=== PATIENT | male | born 1980 | race Caucasian/White ===

== ENCOUNTER 2021-01-05 16:09 | Inpatient (IN) | payer OTHER ==
[2021-01-05 19:49] VITALS: BMI 19.8
[2021-01-05] MEDS ORDERED: ACETAMINOPHEN 325 MG TABLET (FP) PO PRN ×2 (21:00)
[2021-01-05] MEDS ORDERED: MENTHOL/PHENOL 1 EACH UD MM PRN (21:00)
[2021-01-05] MEDS ORDERED: MAGNESIUM HYDROX 2400MG/30ML ORAL SUSPENSION 30 ML CUP PO PRN (21:00)
[2021-01-05] MEDS ORDERED: MAG HYDROX/AL HYDROX/SIMETH 30 ML UNIT-DOSE CUP PO PRN (21:00)
[2021-01-05] MEDS ORDERED: IBUPROFEN 400 MG TABLET (FP) PO PRN (21:00)
[2021-01-05] MEDS ORDERED: chlordiazePOXIDE HCL 25 MG CAPSULE PO PRN (21:00)
[2021-01-05] MEDS ORDERED: NICOTINE POLACRILEX 2 MG GUM BUC PRN (21:00)
[2021-01-05] MEDS ORDERED: METHOCARBAMOL 500 MG TABLET PO PRN (21:00)
[2021-01-05] MEDS ORDERED: BISMUTH SUBSALICYLATE 524 MG/30 ML UD PO PRN (21:00)
[2021-01-05] MEDS ORDERED: ONDANSETRON *ODT* 4 MG TABLET SL PRN (21:00)
[2021-01-05] MEDS ORDERED: MAGNESIUM CITRATE 300 ML BOTTLE PO PRN (21:00)
[2021-01-05] MEDS ORDERED: hydrOXYzine PAMOATE 25 MG CAPSULE (FP) PO SCH (22:00)
[2021-01-05] MEDS ORDERED: LORazepam 1 MG TABLET PO PRN (22:35)
[2021-01-05] MEDS ORDERED: hydrOXYzine PAMOATE 25 MG CAPSULE (FP) PO PRN (22:35)
[2021-01-05] MEDS: levETIRAcetam 500 MG TABLET (FP) PO SCH (22:55)
[2021-01-05] MEDS: MELATONIN 5 MG TABLETS PO SCH (22:55)
[2021-01-05] MEDS: LORazepam 2 MG TABLET PO SCH (22:55)
[2021-01-05] MEDS: THIAMINE HCL 100 MG TABLET (FP) PO SCH (22:57)
[2021-01-05] MEDS ORDERED: chlordiazePOXIDE HCL 25 MG CAPSULE PO SCH (23:00)
[2021-01-06] MEDS: LORazepam 2 MG TABLET PO SCH ×4 (06:22→23:51)
[2021-01-06] MEDS ORDERED: PRENATAL VITAMINS W/ FOLIC ACID TABLET (FP) PO SCH (10:00)
[2021-01-06] MEDS: levETIRAcetam 500 MG TABLET (FP) PO SCH ×2 (10:22→23:51)
[2021-01-06 10:28] LABS: POTASSIUM 3.2 mmol/L (3.5-5.1)
[2021-01-06 10:35] LABS: CALCIUM 8.1 mg/dL (8.5-10.1)
[2021-01-06 10:36] LABS: BLOOD UREA NITROGEN 4.7 mg/dL (7-18)
[2021-01-06 10:39] LABS: CREATININE 0.7 mg/dL (0.55-1.3); HEMATOCRIT 27.5 % (35.4-49); HEMOGLOBIN 9.7 GM/dL (11.7-16.9); MCH 37.2 pg (25.7-33.7); MCHC 35.3 g/dl (32.0-35.9); MEAN CELL VOLUME 105.5 fl (80-96); MEAN PLT VOLUME 8.9 fl (7.5-11.1); PLATELET COUNT 47 K/MM3 (134-434); RBC 2.61 M/mm3 (4.00-5.60); WHITE BLOOD COUNT 4.6 K/mm3 (4.0-10.0)
[2021-01-06 10:40] LABS: BILIRUBIN,TOTAL 4.2 mg/dL (0.2-1); TOT PROT 6.1 g/dl (6.4-8.2)
[2021-01-06 12:55] VITALS: BP 137/71; PULSE 87; TEMP 100.4
[2021-01-06] MEDS: MELATONIN 5 MG TABLETS PO SCH (23:51)
[2021-01-06] MEDS: THIAMINE HCL 100 MG TABLET (FP) PO SCH (23:51)
[2021-01-07] MEDS ORDERED: LORazepam 1 MG TABLET PO SCH (05:00)
[2021-01-07] MEDS ORDERED: chlordiazePOXIDE HCL 25 MG CAPSULE PO SCH (05:00)
[2021-01-08] MEDS ORDERED: chlordiazePOXIDE HCL 10 MG CAPSULE PO PRN
[2021-01-08] MEDS ORDERED: LORazepam 0.5 MG TABLET PO PRN
[2021-01-08] MEDS ORDERED: chlordiazePOXIDE HCL 10 MG CAPSULE PO SCH (05:00)
[2021-01-08] MEDS ORDERED: LORazepam 0.5 MG TABLET PO SCH (05:00)
[2021-01-09] MEDS ORDERED: chlordiazePOXIDE HCL 10 MG CAPSULE PO SCH (05:00)
[2021-01-09] MEDS ORDERED: LORazepam 0.5 MG TABLET PO ONE (05:00)
[2021-01-10] MEDS ORDERED: chlordiazePOXIDE HCL 10 MG CAPSULE PO ONE (05:00)
== END 2021-01-06 20:00 | disposition short-term general hospital (02) | DRG 775 ==
LOC: YASAS 16:09 → Y6N 21:05
PROVIDERS: ADMIT Allergy & Immunology; ATTEND Allergy & Immunology
PROC: HZ2ZZZZ Detoxification Services for Substance Abuse Treatment (ICD-10-PCS; principal; 2021-01-05)
DX: F10.230 Alcohol dependence with withdrawal, uncomplicated (principal); F17.210 Nicotine dependence, cigarettes, uncomplicated; D64.9 Anemia, unspecified; D69.6 Thrombocytopenia, unspecified; E87.6 Hypokalemia; G40.909 Epilepsy, unspecified, not intractable, without status epilepticus; K74.60 Unspecified cirrhosis of liver; R50.9 Fever, unspecified; Z96.642 Presence of left artificial hip joint
CPT/HCPCS: 36415; 80053; 82962; 85027; 86780; C9803; U0003; U0005

== ENCOUNTER 2021-01-06 13:39 | Inpatient (IN) | payer OTHER ==
[2021-01-06] MEDS ORDERED: LACTULOSE 20 GM/30 ML UDC (FOR ORAL USE ONLY) PO ONE (18:02)
[2021-01-06] MEDS ORDERED: LACTULOSE 20 GM/30 ML UDC (FOR ORAL USE ONLY) ONE (18:07)
[2021-01-06 20:53] LABS: EPI CELLS 3 /uL (0-25.1); HYALINE CASTS 0 /uL (0-3.1); PH,URINE >= 9.0 (5.0-8.0); URINE APPEARANCE TURBID; URINE BACTERIA 21 /uL (0-1359); URINE BILIRUBIN 2+ (NEGATIVE); URINE COLOR DK YELLOW; URINE GLUCOSE (UA) NEGATIVE (NEGATIVE); URINE KETONE TRACE (NEGATIVE); URINE LEUK ESTERASE TRACE (NEGATIVE); URINE NITRITE NEGATIVE (NEGATIVE); URINE PROTEIN TRACE (NEGATIVE); URINE WBC 3 /uL (0-25.8)
[2021-01-06] MEDS ORDERED: LORazepam 1 MG TABLET PO PRN (22:16)
[2021-01-06] MEDS ORDERED: POTASSIUM CHLORIDE TABS 20 MEQ TABLET.ER (FP) PO ONE ×2 (22:20→22:31)
[2021-01-06] MEDS ORDERED: LORazepam 1 MG TABLET ONE (22:32)
[2021-01-06] MEDS: LORazepam 1 MG TABLET PO SCH (22:43)
[2021-01-06] MEDS: SODIUM CHLORIDE 1,000 ML with POTASSIUM CHLORIDE 20 MEQ IV SCH (22:43)
[2021-01-06 23:40] LABS: INR 2.27 (0.83-1.09); PROTHROMBIN TIME (PATIENT) 27.3 SEC (9.7-13.0)
[2021-01-06 23:48] LABS: URINE RBC 146.1 /uL (0-23.9)
[2021-01-06 23:52] LABS: MAGNESIUM 1.4 mg/dL (1.8-2.4)
[2021-01-06 23:55] LABS: PHOSPHOROUS 3.2 mg/dL (2.5-4.9)
[2021-01-07] MEDS ORDERED: LACTULOSE 20 GM/30 ML UDC (FOR ORAL USE ONLY) ONE ×2 (02:07→05:07)
[2021-01-07] MEDS: LACTULOSE 20 GM/30 ML UDC (FOR ORAL USE ONLY) PO SCH ×4 (02:12→21:32)
[2021-01-07] MEDS ORDERED: MAGNESIUM SULF 50% (8.12 MEQ/2 ML-1 GM VIAL) IVPB ONE (04:11)
[2021-01-07] MEDS ORDERED: LORazepam 1 MG TABLET ONE (05:06)
[2021-01-07] MEDS ORDERED: MAGNESIUM SULFATE IN WATER 2 GM/50 ML IVPB IVPB ONE (05:07)
[2021-01-07] MEDS: LORazepam 1 MG TABLET PO SCH ×4 (05:19→22:55)
[2021-01-07 07:56] LABS: INR 2.19 (0.83-1.09); PROTHROMBIN TIME (PATIENT) 26.3 SEC (9.7-13.0)
[2021-01-07 08:09] LABS: HEMATOCRIT 28.1 % (35.4-49); HEMOGLOBIN 9.8 GM/dL (11.7-16.9); MCH 37.2 pg (25.7-33.7); MCHC 34.8 g/dl (32.0-35.9); MEAN PLT VOLUME 9.1 fl (7.5-11.1); PLATELET COUNT 45 K/MM3 (134-434); RBC 2.62 M/mm3 (4.00-5.60); RDW 14.8 % (11.9-15.9); WHITE BLOOD COUNT 5.3 K/mm3 (4.0-10.0)
[2021-01-07 08:21] LABS: BLOOD UREA NITROGEN 5.1 mg/dL (7-18)
[2021-01-07 08:22] LABS: MAGNESIUM 1.8 mg/dL (1.8-2.4)
[2021-01-07 08:23] LABS: BILIRUBIN,DIRECT 3.3 mg/dL (0.0-0.2)
[2021-01-07 08:23] LABS: CREATININE 0.7 mg/dL (0.55-1.3); PHOSPHOROUS 2.7 mg/dL (2.5-4.9)
[2021-01-07 08:25] LABS: TOT PROT 6.3 g/dl (6.4-8.2)
[2021-01-07 08:27] LABS: TOT PROT 6.1 g/dl (6.4-8.2)
[2021-01-07] MEDS ORDERED: MULTIVITAMINS (DAILY MVI) TABLET (FP) ONE (09:25)
[2021-01-07] MEDS ORDERED: THIAMINE HCL 100 MG TABLET (FP) ONE (09:26)
[2021-01-07] MEDS ORDERED: FOLIC ACID 1 MG TABLET (FP) ONE (09:26)
[2021-01-07] MEDS ORDERED: levETIRAcetam 500 MG TABLET (FP) PO ONE (09:26)
[2021-01-07] MEDS ORDERED: levETIRAcetam 500 MG TABLET (FP) PO SCH (10:00)
[2021-01-07] MEDS ORDERED: THIAMINE HCL 100 MG TABLET (FP) PO SCH (10:00)
[2021-01-07] MEDS: FOLIC ACID 1 MG TABLET (FP) PO SCH (10:08)
[2021-01-07] MEDS: MULTIVITAMINS (DAILY MVI) TABLET (FP) PO SCH (10:08)
[2021-01-07] MEDS ORDERED: THIAMINE HCL 200 MG/2 ML VIAL IVPB SCH (10:15)
[2021-01-07] MEDS: THIAMINE HCL 200 MG/2 ML VIAL IVPB SCH ×2 (11:05→22:58)
[2021-01-07] MEDS: SODIUM CHLORIDE 1,000 ML with POTASSIUM CHLORIDE 20 MEQ IV SCH ×2 (11:07→23:00)
[2021-01-07] MEDS ORDERED: PANTOPRAZOLE SODIUM 40 MG VIAL IVPUSH SCH (12:00)
[2021-01-07] MEDS: PANTOPRAZOLE SODIUM 40 MG VIAL IVPUSH SCH ×2 (12:37→22:59)
[2021-01-07] MEDS ORDERED: PHYTONADIONE 10 MG/1 ML AMP IVPB ONE (15:24)
[2021-01-07] MEDS ORDERED: PT OWN MED DRAWER 7, Y5N ONE (16:25)
[2021-01-07] MEDS: levETIRAcetam 500 MG TABLET (FP) PO SCH (21:32)
[2021-01-08] MEDS: LORazepam 1 MG TABLET PO SCH ×4 (05:14→23:22)
[2021-01-08] MEDS: LACTULOSE 20 GM/30 ML UDC (FOR ORAL USE ONLY) PO SCH ×3 (05:14→23:04)
[2021-01-08 09:11] LABS: BASO % 0.5 % (0-2.0); EOS % 1.1 % (0-4.5); HEMATOCRIT 28.7 % (35.4-49); LYMPH % 29.7 % (8-40); MCH 37.1 pg (25.7-33.7); MCHC 34.9 g/dl (32.0-35.9); MEAN PLT VOLUME 9.1 fl (7.5-11.1); MONO % 13.2 % (3.8-10.2); NEUT % 55.5 % (42.8-82.8); PLATELET COUNT 51 K/MM3 (134-434); RBC 2.71 M/mm3 (4.00-5.60); RDW 14.9 % (11.9-15.9); WHITE BLOOD COUNT 6.5 K/mm3 (4.0-10.0)
[2021-01-08 09:28] LABS: MAGNESIUM 1.3 mg/dL (1.8-2.4)
[2021-01-08 09:32] LABS: PHOSPHOROUS 1.3 mg/dL (2.5-4.9)
[2021-01-08 09:33] LABS: ALBUMIN 2.3 g/dl (3.4-5.0); BLOOD UREA NITROGEN 3.7 mg/dL (7-18)
[2021-01-08 09:36] LABS: CREATININE 0.7 mg/dL (0.55-1.3)
[2021-01-08 09:38] LABS: BILIRUBIN,TOTAL 6.8 mg/dL (0.2-1)
[2021-01-08] MEDS: MULTIVITAMINS (DAILY MVI) TABLET (FP) PO SCH (10:28)
[2021-01-08] MEDS: RIFAXIMIN 550 MG TABLET (UD) PO SCH ×2 (10:28→23:04)
[2021-01-08] MEDS: THIAMINE HCL 200 MG/2 ML VIAL IVPB SCH ×2 (10:29→23:30)
[2021-01-08] MEDS: PANTOPRAZOLE SODIUM 40 MG VIAL IVPUSH SCH ×2 (10:29→23:04)
[2021-01-08] MEDS: levETIRAcetam 500 MG TABLET (FP) PO SCH ×2 (10:29→23:04)
[2021-01-08] MEDS: FOLIC ACID 1 MG TABLET (FP) PO SCH (10:29)
[2021-01-08 13:08] LABS: HEP B CORE AB, TOT Negative (Negative)
[2021-01-08] MEDS ORDERED: WATER IVPB ONE (17:00)
[2021-01-08] MEDS ORDERED: DEXTROSE 5% IVPB ONE (17:00)
[2021-01-08] MEDS ORDERED: POTASSIUM PHOSPHATE IVPB ONE (17:00)
[2021-01-08] MEDS ORDERED: MAGNESIUM SULFATE IVPB ONE (17:00)
[2021-01-08] MEDS ORDERED: LORazepam 2 MG/ML SDV VIAL IVPUSH SCH (22:45)
[2021-01-08] MEDS ORDERED: LORazepam 2 MG/ML SDV VIAL IVPUSH ONE (22:45)
[2021-01-08] MEDS: SODIUM CHLORIDE 1,000 ML with POTASSIUM CHLORIDE 20 MEQ IV SCH (23:43)
[2021-01-09] MEDS: LORazepam 0.5 MG TABLET PO PRN ×2 (02:50→09:17)
[2021-01-09] MEDS: LACTULOSE 20 GM/30 ML UDC (FOR ORAL USE ONLY) PO SCH ×3 (05:27→22:47)
[2021-01-09] MEDS: LORazepam 0.5 MG TABLET PO SCH ×4 (07:09→22:48)
[2021-01-09] MEDS: RIFAXIMIN 550 MG TABLET (UD) PO SCH ×2 (09:17→22:47)
[2021-01-09] MEDS: levETIRAcetam 500 MG TABLET (FP) PO SCH ×2 (09:17→22:47)
[2021-01-09] MEDS: FOLIC ACID 1 MG TABLET (FP) PO SCH (09:19)
[2021-01-09] MEDS: MULTIVITAMINS (DAILY MVI) TABLET (FP) PO SCH (09:19)
[2021-01-09 10:00] LABS: BASO % 0.6 % (0-2.0); EOS % 1.6 % (0-4.5); HEMATOCRIT 27.2 % (35.4-49); HEMOGLOBIN 9.5 GM/dL (11.7-16.9); LYMPH % 24.2 % (8-40); MCH 37.3 pg (25.7-33.7); MCHC 34.9 g/dl (32.0-35.9); MEAN CELL VOLUME 106.8 fl (80-96); MEAN PLT VOLUME 9.3 fl (7.5-11.1); MONO % 12.6 % (3.8-10.2); PLATELET COUNT 52 K/MM3 (134-434); RBC 2.54 M/mm3 (4.00-5.60); RDW 14.8 % (11.9-15.9); WHITE BLOOD COUNT 6.5 K/mm3 (4.0-10.0)
[2021-01-09 10:22] LABS: ALBUMIN 2.2 g/dl (3.4-5.0); BLOOD UREA NITROGEN 3.6 mg/dL (7-18); CALCIUM 7.7 mg/dL (8.5-10.1); MAGNESIUM 1.6 mg/dL (1.8-2.4)
[2021-01-09 10:24] LABS: CREATININE 0.7 mg/dL (0.55-1.3)
[2021-01-09 10:26] LABS: BILIRUBIN,TOTAL 5.9 mg/dL (0.2-1); PHOSPHOROUS 2.2 mg/dL (2.5-4.9); TOT PROT 6.3 g/dl (6.4-8.2)
[2021-01-09] MEDS ORDERED: LORazepam 0.5 MG TABLET PO ONE (11:00)
[2021-01-09] MEDS: THIAMINE HCL 200 MG/2 ML VIAL IVPB SCH ×2 (11:11→23:06)
[2021-01-09] MEDS: PANTOPRAZOLE SODIUM 40 MG VIAL IVPUSH SCH ×2 (11:11→22:47)
[2021-01-09] MEDS: SODIUM CHLORIDE 1,000 ML with POTASSIUM CHLORIDE 20 MEQ IV SCH (11:11)
[2021-01-09] MEDS: methylPREDNISolone 4 MG TABLET PO SCH (11:15)
[2021-01-09 11:57] LABS: INR 2.59 (0.83-1.09); PROTHROMBIN TIME (PATIENT) 30.5 SEC (9.7-13.0)
[2021-01-09] MEDS ORDERED: NAPH,MB-DB/K PH,MBDB POWDER PACKET PO ONE (14:14)
[2021-01-09] MEDS ORDERED: MAGNESIUM 1GM/D5W 100ML - 100 ML IVPB IVPB ONE (14:30)
[2021-01-10] MEDS: SODIUM CHLORIDE 0.9%/KCL 20 MEQ/1,000 ML INFUS.BAG IV SCH (01:43)
[2021-01-10] MEDS ORDERED: LORazepam 0.5 MG TABLET PO ONE (05:00)
[2021-01-10] MEDS: LACTULOSE 20 GM/30 ML UDC (FOR ORAL USE ONLY) PO SCH ×3 (05:46→21:36)
[2021-01-10 08:57] LABS: BASO % 0.1 % (0-2.0); EOS % 0.1 % (0-4.5); HEMATOCRIT 24.1 % (35.4-49); HEMOGLOBIN 8.2 GM/dL (11.7-16.9); LYMPH % 13.8 % (8-40); MCH 36.8 pg (25.7-33.7); MCHC 33.9 g/dl (32.0-35.9); MEAN CELL VOLUME 108.5 fl (80-96); MEAN PLT VOLUME 9.4 fl (7.5-11.1); MONO % 12.6 % (3.8-10.2); NEUT % 73.4 % (42.8-82.8); PLATELET COUNT 59 K/MM3 (134-434); RBC 2.22 M/mm3 (4.00-5.60); RDW 14.6 % (11.9-15.9); WHITE BLOOD COUNT 9.8 K/mm3 (4.0-10.0)
[2021-01-10] MEDS ORDERED: PT OWN MED DRAWER 7, Y5N ONE (09:06)
[2021-01-10] MEDS: levETIRAcetam 500 MG TABLET (FP) PO SCH ×2 (09:07→21:34)
[2021-01-10] MEDS: PANTOPRAZOLE SODIUM 40 MG VIAL IVPUSH SCH ×2 (09:08→21:33)
[2021-01-10] MEDS: FOLIC ACID 1 MG TABLET (FP) PO SCH (09:08)
[2021-01-10] MEDS: MULTIVITAMINS (DAILY MVI) TABLET (FP) PO SCH (09:08)
[2021-01-10] MEDS: RIFAXIMIN 550 MG TABLET (UD) PO SCH ×2 (09:08→21:34)
[2021-01-10 09:09] LABS: BLOOD UREA NITROGEN 6.6 mg/dL (7-18); CALCIUM 7.1 mg/dL (8.5-10.1)
[2021-01-10] MEDS: THIAMINE HCL 200 MG/2 ML VIAL IVPB SCH ×2 (09:09→21:34)
[2021-01-10 09:10] LABS: MAGNESIUM 1.6 mg/dL (1.8-2.4)
[2021-01-10] MEDS: methylPREDNISolone 4 MG TABLET PO SCH (09:10)
[2021-01-10 09:12] LABS: CREATININE 0.6 mg/dL (0.55-1.3)
[2021-01-10 09:13] LABS: PHOSPHOROUS 2.4 mg/dL (2.5-4.9)
[2021-01-10 09:14] LABS: BILIRUBIN,TOTAL 5.7 mg/dL (0.2-1); TOT PROT 5.9 g/dl (6.4-8.2)
[2021-01-10] MEDS ORDERED: PHYTONADIONE 5 MG TABLET PO ONE (11:00)
[2021-01-10] MEDS: LORazepam 0.5 MG TABLET PO PRN (11:52)
[2021-01-10] MEDS ORDERED: MAGNESIUM 1GM/D5W 100ML - 100 ML IVPB IVPB ONE (13:00)
[2021-01-10] MEDS ORDERED: NAPH,MB-DB/K PH,MBDB POWDER PACKET PO ONE (13:00)
[2021-01-10 13:22] LABS: INR 2.69 (0.83-1.09); PROTHROMBIN TIME (PATIENT) 32.2 SEC (9.7-13.0)
[2021-01-11] MEDS: SODIUM CHLORIDE 0.9%/KCL 20 MEQ/1,000 ML INFUS.BAG IV SCH (02:20)
[2021-01-11] MEDS: LACTULOSE 20 GM/30 ML UDC (FOR ORAL USE ONLY) PO SCH ×3 (06:11→21:22)
[2021-01-11 08:46] LABS: BASO % 0.2 % (0-2.0); EOS % 0.4 % (0-4.5); HEMATOCRIT 25.1 % (35.4-49); HEMOGLOBIN 8.8 GM/dL (11.7-16.9); LYMPH % 18.5 % (8-40); MCH 37.9 pg (25.7-33.7); MCHC 34.9 g/dl (32.0-35.9); MEAN CELL VOLUME 108.5 fl (80-96); MEAN PLT VOLUME 9.6 fl (7.5-11.1); MONO % 11.8 % (3.8-10.2); NEUT % 69.1 % (42.8-82.8); PLATELET COUNT 67 K/MM3 (134-434); RBC 2.32 M/mm3 (4.00-5.60); RDW 15.4 % (11.9-15.9); WHITE BLOOD COUNT 10.3 K/mm3 (4.0-10.0)
[2021-01-11 09:11] LABS: BLOOD UREA NITROGEN 7.8 mg/dL (7-18); CALCIUM 7.4 mg/dL (8.5-10.1); MAGNESIUM 1.9 mg/dL (1.8-2.4)
[2021-01-11 09:14] LABS: CREATININE 0.6 mg/dL (0.55-1.3); PHOSPHOROUS 2.3 mg/dL (2.5-4.9)
[2021-01-11 09:16] LABS: BILIRUBIN,TOTAL 4.8 mg/dL (0.2-1); TOT PROT 5.8 g/dl (6.4-8.2)
[2021-01-11] MEDS: levETIRAcetam 500 MG TABLET (FP) PO SCH ×2 (09:36→21:22)
[2021-01-11] MEDS: LORazepam 0.5 MG TABLET PO PRN (09:36)
[2021-01-11] MEDS: PANTOPRAZOLE SODIUM 40 MG VIAL IVPUSH SCH ×2 (09:37→21:23)
[2021-01-11] MEDS: RIFAXIMIN 550 MG TABLET (UD) PO SCH ×2 (09:37→21:22)
[2021-01-11] MEDS: FOLIC ACID 1 MG TABLET (FP) PO SCH (09:37)
[2021-01-11] MEDS: MULTIVITAMINS (DAILY MVI) TABLET (FP) PO SCH (09:37)
[2021-01-11] MEDS ORDERED: PT OWN MED DRAWER 7, Y5N ONE (09:38)
[2021-01-11] MEDS: methylPREDNISolone 4 MG TABLET PO SCH (09:39)
[2021-01-11] MEDS: THIAMINE HCL 200 MG/2 ML VIAL IVPB SCH ×2 (09:41→21:23)
[2021-01-12] MEDS: SODIUM CHLORIDE 0.9%/KCL 20 MEQ/1,000 ML INFUS.BAG IV SCH (01:45)
[2021-01-12] MEDS: LACTULOSE 20 GM/30 ML UDC (FOR ORAL USE ONLY) PO SCH ×3 (06:05→22:21)
[2021-01-12] MEDS ORDERED: NAPH,MB-DB/K PH,MBDB POWDER PACKET PO ONE (09:00)
[2021-01-12] MEDS ORDERED: PT OWN MED DRAWER 7, Y5N ONE (09:16)
[2021-01-12 09:25] LABS: BASO % 0.1 % (0-2.0); EOS % 0.2 % (0-4.5); HEMATOCRIT 26.3 % (35.4-49); HEMOGLOBIN 9.2 GM/dL (11.7-16.9); MCH 37.5 pg (25.7-33.7); MCHC 34.8 g/dl (32.0-35.9); MEAN CELL VOLUME 107.7 fl (80-96); MEAN PLT VOLUME 8.9 fl (7.5-11.1); NEUT % 64.7 % (42.8-82.8); PLATELET COUNT 83 K/MM3 (134-434); RBC 2.44 M/mm3 (4.00-5.60); WHITE BLOOD COUNT 9.5 K/mm3 (4.0-10.0)
[2021-01-12] MEDS: RIFAXIMIN 550 MG TABLET (UD) PO SCH ×2 (09:27→22:23)
[2021-01-12] MEDS: FOLIC ACID 1 MG TABLET (FP) PO SCH (09:27)
[2021-01-12] MEDS: levETIRAcetam 500 MG TABLET (FP) PO SCH ×2 (09:27→22:22)
[2021-01-12] MEDS: MULTIVITAMINS (DAILY MVI) TABLET (FP) PO SCH (09:27)
[2021-01-12 09:28] LABS: INR 2.32 (0.83-1.09); PROTHROMBIN TIME (PATIENT) 27.8 SEC (9.7-13.0)
[2021-01-12] MEDS: methylPREDNISolone 4 MG TABLET PO SCH (09:28)
[2021-01-12] MEDS: THIAMINE HCL 200 MG/2 ML VIAL IVPB SCH ×2 (09:31→22:23)
[2021-01-12] MEDS: PANTOPRAZOLE SODIUM 40 MG VIAL IVPUSH SCH ×2 (09:33→22:23)
[2021-01-12 10:02] LABS: ALBUMIN 2.1 g/dl (3.4-5.0); CALCIUM 7.8 mg/dL (8.5-10.1)
[2021-01-12 10:03] LABS: BLOOD UREA NITROGEN 7.4 mg/dL (7-18); MAGNESIUM 1.7 mg/dL (1.8-2.4)
[2021-01-12 10:06] LABS: CREATININE 0.6 mg/dL (0.55-1.3); PHOSPHOROUS 1.6 mg/dL (2.5-4.9)
[2021-01-12 10:07] LABS: BILIRUBIN,TOTAL 4.5 mg/dL (0.2-1); TOT PROT 6.3 g/dl (6.4-8.2)
[2021-01-12] MEDS ORDERED: LORazepam 0.5 MG TABLET PO PRN (10:54)
[2021-01-12] MEDS ORDERED: MAGNESIUM 1GM/D5W 100ML - 100 ML IVPB IVPB ONE (11:00)
[2021-01-12 11:22] LABS: ANISOCYTOSIS 1+; MACROCYTOSIS 1+; PLATELET ESTIMATE DECREASED; TARGET CELLS 1+
[2021-01-12] MEDS ORDERED: LORazepam 2 MG/ML SDV VIAL IM ONE (14:45)
[2021-01-13] MEDS: SODIUM CHLORIDE 0.9%/KCL 20 MEQ/1,000 ML INFUS.BAG IV SCH ×2 (02:40→03:38)
[2021-01-13] MEDS: LACTULOSE 20 GM/30 ML UDC (FOR ORAL USE ONLY) PO SCH ×3 (06:57→22:37)
[2021-01-13 09:25] LABS: BASO % 0.2 % (0-2.0); EOS % 0.4 % (0-4.5); HEMOGLOBIN 10.8 GM/dL (11.7-16.9); LYMPH % 18.3 % (8-40); MCH 36.5 pg (25.7-33.7); MCHC 33.7 g/dl (32.0-35.9); MEAN CELL VOLUME 108.3 fl (80-96); MEAN PLT VOLUME 8.8 fl (7.5-11.1); MONO % 20.3 % (3.8-10.2); NEUT % 60.8 % (42.8-82.8); PLATELET COUNT 108 K/MM3 (134-434); RBC 2.96 M/mm3 (4.00-5.60); RDW 14.8 % (11.9-15.9); WHITE BLOOD COUNT 11.1 K/mm3 (4.0-10.0)
[2021-01-13 10:01] LABS: ALBUMIN 2.5 g/dl (3.4-5.0); BLOOD UREA NITROGEN 6.8 mg/dL (7-18)
[2021-01-13 10:02] LABS: CALCIUM 8.4 mg/dL (8.5-10.1); MAGNESIUM 1.9 mg/dL (1.8-2.4)
[2021-01-13 10:03] LABS: CREATININE 0.7 mg/dL (0.55-1.3)
[2021-01-13 10:05] LABS: BILIRUBIN,TOTAL 5.6 mg/dL (0.2-1); PHOSPHOROUS 1.6 mg/dL (2.5-4.9); TOT PROT 7.2 g/dl (6.4-8.2)
[2021-01-13] MEDS: MULTIVITAMINS (DAILY MVI) TABLET (FP) PO SCH (10:37)
[2021-01-13] MEDS: FOLIC ACID 1 MG TABLET (FP) PO SCH (10:37)
[2021-01-13] MEDS: levETIRAcetam 500 MG TABLET (FP) PO SCH ×2 (10:37→22:37)
[2021-01-13] MEDS: THIAMINE HCL 200 MG/2 ML VIAL IVPB SCH ×2 (10:37→22:38)
[2021-01-13] MEDS: RIFAXIMIN 550 MG TABLET (UD) PO SCH ×2 (10:37→22:37)
[2021-01-13] MEDS: PANTOPRAZOLE SODIUM 40 MG VIAL IVPUSH SCH ×2 (10:37→22:38)
[2021-01-13 11:10] LABS: ANISOCYTOSIS 1+; MACROCYTOSIS 1+; PLATELET ESTIMATE DECREASED
[2021-01-13] MEDS: methylPREDNISolone 4 MG TABLET PO SCH (11:23)
[2021-01-13] MEDS ORDERED: LORazepam 2 MG TABLET PO SCH (12:00)
[2021-01-13] MEDS: LORazepam 0.5 MG TABLET PO SCH ×3 (14:15→20:09)
[2021-01-13] MEDS ORDERED: NAPH,MB-DB/K PH,MBDB POWDER PACKET PO ONE ×2 (15:15→22:00)
[2021-01-14] MEDS: LORazepam 0.5 MG TABLET PO SCH ×8 (01:43→22:39)
[2021-01-14 08:48] LABS: BASO % 0.1 % (0-2.0); EOS % 0.6 % (0-4.5); LYMPH % 19.5 % (8-40); MCH 37.2 pg (25.7-33.7); MCHC 34.6 g/dl (32.0-35.9); MEAN CELL VOLUME 107.8 fl (80-96); MEAN PLT VOLUME 8.8 fl (7.5-11.1); MONO % 17.1 % (3.8-10.2); NEUT % 62.7 % (42.8-82.8); PLATELET COUNT 101 K/MM3 (134-434); RBC 2.69 M/mm3 (4.00-5.60); RDW 14.9 % (11.9-15.9); WHITE BLOOD COUNT 9.6 K/mm3 (4.0-10.0)
[2021-01-14 09:18] LABS: ALBUMIN 2.2 g/dl (3.4-5.0); BLOOD UREA NITROGEN 8.6 mg/dL (7-18); CALCIUM 8.2 mg/dL (8.5-10.1); MAGNESIUM 1.8 mg/dL (1.8-2.4)
[2021-01-14 09:21] LABS: CREATININE 0.6 mg/dL (0.55-1.3); PHOSPHOROUS 2.9 mg/dL (2.5-4.9)
[2021-01-14 09:22] LABS: TOT PROT 6.5 g/dl (6.4-8.2)
[2021-01-14] MEDS ORDERED: PT OWN MED DRAWER 7, Y5N ONE (10:02)
[2021-01-14] MEDS: THIAMINE HCL 200 MG/2 ML VIAL IVPB SCH ×2 (10:05→22:38)
[2021-01-14] MEDS: RIFAXIMIN 550 MG TABLET (UD) PO SCH ×2 (10:06→22:38)
[2021-01-14] MEDS: levETIRAcetam 500 MG TABLET (FP) PO SCH ×2 (10:06→22:38)
[2021-01-14] MEDS: MULTIVITAMINS (DAILY MVI) TABLET (FP) PO SCH (10:07)
[2021-01-14] MEDS: FOLIC ACID 1 MG TABLET (FP) PO SCH (10:07)
[2021-01-14] MEDS: methylPREDNISolone 4 MG TABLET PO SCH (10:07)
[2021-01-14] MEDS: PANTOPRAZOLE SODIUM 40 MG VIAL IVPUSH SCH ×2 (10:07→22:38)
[2021-01-14] MEDS: LACTULOSE 20 GM/30 ML UDC (FOR ORAL USE ONLY) PO SCH ×2 (10:07→22:38)
[2021-01-14 21:23] VITALS: BMI 19.0
[2021-01-15] MEDS: LORazepam 0.5 MG TABLET PO SCH ×2 (03:36→06:37)
[2021-01-15 08:56] LABS: BASO % 0.4 % (0-2.0); EOS % 0.1 % (0-4.5); HEMATOCRIT 27.9 % (35.4-49); HEMOGLOBIN 9.6 GM/dL (11.7-16.9); LYMPH % 10.5 % (8-40); MCH 36.9 pg (25.7-33.7); MCHC 34.4 g/dl (32.0-35.9); MEAN CELL VOLUME 107.2 fl (80-96); MONO % 18.5 % (3.8-10.2); NEUT % 70.5 % (42.8-82.8); PLATELET COUNT 103 K/MM3 (134-434); RDW 15.2 % (11.9-15.9); WHITE BLOOD COUNT 10.1 K/mm3 (4.0-10.0)
[2021-01-15 09:08] LABS: INR 2.37 (0.83-1.09)
[2021-01-15 09:11] LABS: ACTIVATED PTT 34.4 SECONDS (25.2-36.5)
[2021-01-15 09:18] LABS: BLOOD UREA NITROGEN 9.1 mg/dL (7-18); CALCIUM 7.6 mg/dL (8.5-10.1); MAGNESIUM 1.7 mg/dL (1.8-2.4)
[2021-01-15 09:21] LABS: CREATININE 0.7 mg/dL (0.55-1.3); PHOSPHOROUS 2.8 mg/dL (2.5-4.9)
[2021-01-15 09:22] LABS: BILIRUBIN,TOTAL 4.6 mg/dL (0.2-1); TOT PROT 5.9 g/dl (6.4-8.2)
[2021-01-15] MEDS ORDERED: PT OWN MED DRAWER 7, Y5N ONE (09:45)
[2021-01-15] MEDS: FOLIC ACID 1 MG TABLET (FP) PO SCH (10:02)
[2021-01-15] MEDS: MULTIVITAMINS (DAILY MVI) TABLET (FP) PO SCH (10:02)
[2021-01-15] MEDS: RIFAXIMIN 550 MG TABLET (UD) PO SCH ×2 (10:02→21:12)
[2021-01-15] MEDS: THIAMINE HCL 200 MG/2 ML VIAL IVPB SCH ×2 (10:02→21:11)
[2021-01-15] MEDS: levETIRAcetam 500 MG TABLET (FP) PO SCH ×2 (10:02→21:12)
[2021-01-15] MEDS: PANTOPRAZOLE SODIUM 40 MG VIAL IVPUSH SCH (10:02)
[2021-01-15] MEDS: LACTULOSE 20 GM/30 ML UDC (FOR ORAL USE ONLY) PO SCH ×2 (10:03→21:12)
[2021-01-15] MEDS: methylPREDNISolone 4 MG TABLET PO SCH (10:03)
[2021-01-15] MEDS ORDERED: LORazepam 2 MG TABLET PO PRN (12:06)
[2021-01-15] MEDS ORDERED: LORazepam 1 MG TABLET PO PRN ×2 (12:21→12:26)
[2021-01-15] MEDS ORDERED: MAGNESIUM OXIDE 400 MG TABLET (FP) PO ONE (12:47)
[2021-01-16] MEDS ORDERED: PT OWN MED DRAWER 7, Y5N ONE (09:14)
[2021-01-16] MEDS: MULTIVITAMINS (DAILY MVI) TABLET (FP) PO SCH (09:17)
[2021-01-16] MEDS: RIFAXIMIN 550 MG TABLET (UD) PO SCH ×2 (09:17→21:24)
[2021-01-16] MEDS: levETIRAcetam 500 MG TABLET (FP) PO SCH ×2 (09:17→21:24)
[2021-01-16] MEDS: THIAMINE HCL 200 MG/2 ML VIAL IVPB SCH ×2 (09:17→21:25)
[2021-01-16] MEDS: methylPREDNISolone 4 MG TABLET PO SCH (09:18)
[2021-01-16] MEDS: FOLIC ACID 1 MG TABLET (FP) PO SCH (09:18)
[2021-01-16] MEDS: LACTULOSE 20 GM/30 ML UDC (FOR ORAL USE ONLY) PO SCH ×2 (09:18→21:24)
[2021-01-16 09:38] LABS: BASO % 0.1 % (0-2.0); EOS % 0.4 % (0-4.5); HEMATOCRIT 31.1 % (35.4-49); HEMOGLOBIN 10.5 GM/dL (11.7-16.9); LYMPH % 16.8 % (8-40); MCH 35.9 pg (25.7-33.7); MCHC 33.7 g/dl (32.0-35.9); MEAN CELL VOLUME 106.4 fl (80-96); MEAN PLT VOLUME 8.8 fl (7.5-11.1); NEUT % 62.7 % (42.8-82.8); PLATELET COUNT 120 K/MM3 (134-434); RBC 2.92 M/mm3 (4.00-5.60); RDW 15.1 % (11.9-15.9); WHITE BLOOD COUNT 11.6 K/mm3 (4.0-10.0)
[2021-01-16 09:48] LABS: INR 1.95 (0.83-1.09); PROTHROMBIN TIME (PATIENT) 23.5 SEC (9.7-13.0)
[2021-01-16 10:16] LABS: ALBUMIN 2.2 g/dl (3.4-5.0)
[2021-01-16 10:17] LABS: MAGNESIUM 1.9 mg/dL (1.8-2.4)
[2021-01-16 10:18] LABS: BILIRUBIN,TOTAL 4.8 mg/dL (0.2-1); TOT PROT 6.3 g/dl (6.4-8.2)
[2021-01-16 10:20] LABS: CREATININE 0.7 mg/dL (0.55-1.3); PHOSPHOROUS 3.8 mg/dL (2.5-4.9)
[2021-01-17 09:07] LABS: HEMOGLOBIN 10.1 GM/dL (11.7-16.9); MCH 35.8 pg (25.7-33.7); MCHC 33.6 g/dl (32.0-35.9); MEAN CELL VOLUME 106.5 fl (80-96); MEAN PLT VOLUME 9.1 fl (7.5-11.1); PLATELET COUNT 113 K/MM3 (134-434); RBC 2.82 M/mm3 (4.00-5.60); RDW 15.1 % (11.9-15.9); WHITE BLOOD COUNT 12.7 K/mm3 (4.0-10.0)
[2021-01-17 09:19] LABS: INR 2.08 (0.83-1.09); PROTHROMBIN TIME (PATIENT) 24.6 SEC (9.7-13.0)
[2021-01-17 09:56] LABS: BLOOD UREA NITROGEN 11.6 mg/dL (7-18)
[2021-01-17 09:57] LABS: MAGNESIUM 1.9 mg/dL (1.8-2.4)
[2021-01-17 09:59] LABS: CREATININE 0.6 mg/dL (0.55-1.3)
[2021-01-17 10:00] LABS: PHOSPHOROUS 3.4 mg/dL (2.5-4.9)
[2021-01-17 10:03] LABS: BILIRUBIN,TOTAL 4.3 mg/dL (0.2-1); TOT PROT 5.8 g/dl (6.4-8.2)
[2021-01-17] MEDS ORDERED: PT OWN MED DRAWER 7, Y5N ONE (10:28)
[2021-01-17] MEDS: THIAMINE HCL 200 MG/2 ML VIAL IVPB SCH (10:32)
[2021-01-17] MEDS: methylPREDNISolone 4 MG TABLET PO SCH (10:32)
[2021-01-17] MEDS: FOLIC ACID 1 MG TABLET (FP) PO SCH (10:32)
[2021-01-17] MEDS: RIFAXIMIN 550 MG TABLET (UD) PO SCH ×2 (10:32→21:58)
[2021-01-17] MEDS: MULTIVITAMINS (DAILY MVI) TABLET (FP) PO SCH (10:32)
[2021-01-17] MEDS: levETIRAcetam 500 MG TABLET (FP) PO SCH ×2 (10:32→21:58)
[2021-01-17] MEDS: LACTULOSE 20 GM/30 ML UDC (FOR ORAL USE ONLY) PO SCH ×2 (10:32→21:57)
[2021-01-17] MEDS: THIAMINE HCL 100 MG TABLET (FP) PO SCH (21:58)
[2021-01-18 08:33] LABS: BASO % 0.2 % (0-2.0); EOS % 0.1 % (0-4.5); HEMATOCRIT 30.1 % (35.4-49); HEMOGLOBIN 10.1 GM/dL (11.7-16.9); LYMPH % 8.6 % (8-40); MCH 35.6 pg (25.7-33.7); MCHC 33.7 g/dl (32.0-35.9); MEAN CELL VOLUME 105.8 fl (80-96); MEAN PLT VOLUME 9.3 fl (7.5-11.1); MONO % 17.9 % (3.8-10.2); NEUT % 73.2 % (42.8-82.8); PLATELET COUNT 119 K/MM3 (134-434); RBC 2.85 M/mm3 (4.00-5.60); RDW 15.6 % (11.9-15.9); WHITE BLOOD COUNT 12.2 K/mm3 (4.0-10.0)
[2021-01-18 08:47] LABS: ALBUMIN 2.2 g/dl (3.4-5.0); BLOOD UREA NITROGEN 12.8 mg/dL (7-18); CALCIUM 8.6 mg/dL (8.5-10.1)
[2021-01-18 08:50] LABS: CREATININE 0.6 mg/dL (0.55-1.3)
[2021-01-18 08:52] LABS: BILIRUBIN,TOTAL 4.3 mg/dL (0.2-1)
[2021-01-18] MEDS ORDERED: PT OWN MED DRAWER 7, Y5N ONE (09:17)
[2021-01-18] MEDS: RIFAXIMIN 550 MG TABLET (UD) PO SCH (09:28)
[2021-01-18] MEDS: methylPREDNISolone 4 MG TABLET PO SCH (09:29)
[2021-01-18] MEDS: THIAMINE HCL 100 MG TABLET (FP) PO SCH (09:29)
[2021-01-18] MEDS: levETIRAcetam 500 MG TABLET (FP) PO SCH (09:29)
[2021-01-18] MEDS: FOLIC ACID 1 MG TABLET (FP) PO SCH (09:29)
[2021-01-18] MEDS: LACTULOSE 20 GM/30 ML UDC (FOR ORAL USE ONLY) PO SCH (09:29)
[2021-01-18] MEDS: MULTIVITAMINS (DAILY MVI) TABLET (FP) PO SCH (09:29)
[2021-01-18] MEDS ORDERED: TETRAHYDROZOLINE HCL EYE DROPS OU PRN (12:15)
[2021-01-18 14:35] VITALS: BP 149/81; PULSE 76; TEMP 98.3
[2021-01-21 15:08] LABS: METHYLMALONIC ACID- 60 nmol/L (0-378)
== END 2021-01-18 17:25 | disposition other institution (70) | DRG 280 ==
LOC: JER 13:39 → JERBED 19:46 → J6S 01-07 10:41
PROVIDERS: ADMIT Internal Medicine; ATTEND Internal Medicine
PROC: HZ2ZZZZ Detoxification Services for Substance Abuse Treatment (ICD-10-PCS; principal; 2021-01-06)
DX: K70.40 Alcoholic hepatic failure without coma (principal); F10.239 Alcohol dependence with withdrawal, unspecified; K70.30 Alcoholic cirrhosis of liver without ascites; E87.6 Hypokalemia; D53.9 Nutritional anemia, unspecified; K76.0 Fatty (change of) liver, not elsewhere classified; E83.39 Other disorders of phosphorus metabolism; E83.42 Hypomagnesemia; K92.2 Gastrointestinal hemorrhage, unspecified; Z68.1 Body mass index [BMI] 19.9 or less, adult; K70.10 Alcoholic hepatitis without ascites; E43 Unspecified severe protein-calorie malnutrition; E87.1 Hypo-osmolality and hyponatremia; E72.20 Disorder of urea cycle metabolism, unspecified; D68.4 Acquired coagulation factor deficiency; D69.6 Thrombocytopenia, unspecified
CPT/HCPCS: 36415; 70450-TC; 71046-TC-FY; 72125-TC; 76536-TC; 76705-TC; 80053; 80074; 80076; 81003; 82140; 82248; 82272; 82607; 82728; 82746; 82962; 83540; 83550; 83735; 83921; 84100; 85025; 85027; 85610; 85730; 86140; 86704; 86706; 86707; 86708; 86709; 86803; 86850; 86900; 86901; 87040; 87086; 87340; 93005; 93010; 97116-GP; 97162-GP; 99285-25; C9803; G0397; U0003; U0005

== ENCOUNTER 2021-01-18 17:57 | Inpatient (IN) | payer OTHER ==
[2021-01-18 18:57] VITALS: BMI 17.1
[2021-01-18] MEDS ORDERED: NICOTINE POLACRILEX 2 MG GUM BC PRN (20:05)
[2021-01-18] MEDS ORDERED: IBUPROFEN 400 MG TABLET (FP) PO PRN (20:05)
[2021-01-18] MEDS ORDERED: MAGNESIUM HYDROX 2400MG/30ML ORAL SUSPENSION 30 ML CUP PO PRN (20:05)
[2021-01-18] MEDS ORDERED: P-EPHED 60MG/TRIPROLIDI 2.5MG TABLET PO PRN (20:05)
[2021-01-18] MEDS ORDERED: MAG HYDROX/AL HYDROX/SIMETH 30 ML UNIT-DOSE CUP PO PRN (20:05)
[2021-01-18] MEDS ORDERED: guaiFENesin 200 MG/10 ML 10 ML UNIT-DOSE CUPS PO PRN (20:05)
[2021-01-18] MEDS ORDERED: ACETAMINOPHEN 325 MG TABLET (FP) PO PRN (20:05)
[2021-01-18] MEDS ORDERED: LOPERAMIDE HCL 2 MG CAPSULE PO PRN (20:05)
[2021-01-18] MEDS ORDERED: MAGNESIUM CITRATE 300 ML BOTTLE PO PRN (20:05)
[2021-01-18] MEDS ORDERED: TUBERCULIN PPD 5 TU/0.1ML VIAL ID ONE ×2 (21:30→23:12)
[2021-01-18] MEDS ORDERED: MELATONIN 5 MG TABLETS PO SCH (22:00)
[2021-01-18] MEDS: levETIRAcetam 500 MG TABLET (FP) PO SCH (22:01)
[2021-01-18] MEDS: hydrOXYzine PAMOATE 25 MG CAPSULE (FP) PO SCH (22:01)
[2021-01-18] MEDS: LACTULOSE 20 GM/30 ML UDC (FOR ORAL USE ONLY) PO SCH (22:01)
[2021-01-18] MEDS: THIAMINE HCL 100 MG TABLET (FP) PO SCH (22:01)
[2021-01-18] MEDS: PRENATAL VITAMINS W/ FOLIC ACID TABLET (FP) PO SCH (22:02)
[2021-01-18] MEDS: NICOTINE 7 MG/24 HOURS TOPICAL PATCH TD SCH (22:02)
[2021-01-18] MEDS: RIFAXIMIN 550 MG TABLET (UD) PO SCH (22:14)
[2021-01-18] MEDS ORDERED: PT OWN MED DRAWER 7, Y5N ONE (22:19)
[2021-01-19] MEDS: hydrOXYzine PAMOATE 25 MG CAPSULE (FP) PO SCH ×3 (06:52→15:12)
[2021-01-19] MEDS: PANTOPRAZOLE 40 MG TABLET PO SCH (09:53)
[2021-01-19] MEDS: PRENATAL VITAMINS W/ FOLIC ACID TABLET (FP) PO SCH (09:53)
[2021-01-19] MEDS: levETIRAcetam 500 MG TABLET (FP) PO SCH ×2 (09:53→21:12)
[2021-01-19] MEDS: LACTULOSE 20 GM/30 ML UDC (FOR ORAL USE ONLY) PO SCH ×2 (09:53→21:12)
[2021-01-19] MEDS: RIFAXIMIN 550 MG TABLET (UD) PO SCH ×2 (09:54→21:12)
[2021-01-19] MEDS: methylPREDNISolone 4 MG TABLET PO SCH (09:54)
[2021-01-19] MEDS: NICOTINE 7 MG/24 HOURS TOPICAL PATCH TD SCH (09:56)
[2021-01-19] MEDS ORDERED: FOLIC ACID 1 MG TABLET (FP) PO SCH (10:00)
[2021-01-19] MEDS ORDERED: methylPREDNISolone 4 MG TABLET PO SCH (10:00)
[2021-01-19] MEDS ORDERED: PT OWN MED DRAWER 7, Y5N ONE (19:12)
[2021-01-19] MEDS: THIAMINE HCL 100 MG TABLET (FP) PO SCH (21:12)
[2021-01-19] MEDS: SUVOREXANT 10 MG TABLET PO PRN (21:13)
[2021-01-20] MEDS ORDERED: PT OWN MED DRAWER 7, Y5N ONE (08:40)
[2021-01-20] MEDS: ASCORBIC ACID 250 MG TABLET (FP) PO SCH (09:56)
[2021-01-20] MEDS: levETIRAcetam 500 MG TABLET (FP) PO SCH ×2 (09:56→21:04)
[2021-01-20] MEDS: FERROUS SO4 325 MG TABLET (FP) PO SCH (09:56)
[2021-01-20] MEDS: PANTOPRAZOLE 40 MG TABLET PO SCH (09:56)
[2021-01-20] MEDS: methylPREDNISolone 4 MG TABLET PO SCH (09:57)
[2021-01-20] MEDS: RIFAXIMIN 550 MG TABLET (UD) PO SCH ×2 (09:57→21:05)
[2021-01-20] MEDS: NICOTINE 7 MG/24 HOURS TOPICAL PATCH TD SCH (09:58)
[2021-01-20] MEDS: PRENATAL VITAMINS W/ FOLIC ACID TABLET (FP) PO SCH (09:58)
[2021-01-20] MEDS: LACTULOSE 20 GM/30 ML UDC (FOR ORAL USE ONLY) PO SCH ×2 (09:59→21:04)
[2021-01-20] MEDS: THIAMINE HCL 100 MG TABLET (FP) PO SCH (21:04)
[2021-01-20] MEDS: SUVOREXANT 10 MG TABLET PO PRN (21:08)
[2021-01-20] MEDS: hydrOXYzine PAMOATE 25 MG CAPSULE (FP) PO PRN (21:08)
[2021-01-21] MEDS: LACTULOSE 20 GM/30 ML UDC (FOR ORAL USE ONLY) PO SCH ×2 (09:59→21:28)
[2021-01-21] MEDS: levETIRAcetam 500 MG TABLET (FP) PO SCH ×2 (09:59→21:27)
[2021-01-21] MEDS: methylPREDNISolone 4 MG TABLET PO SCH (10:00)
[2021-01-21] MEDS: PANTOPRAZOLE 40 MG TABLET PO SCH (10:00)
[2021-01-21] MEDS: FERROUS SO4 325 MG TABLET (FP) PO SCH (10:00)
[2021-01-21] MEDS: PRENATAL VITAMINS W/ FOLIC ACID TABLET (FP) PO SCH (10:01)
[2021-01-21] MEDS: RIFAXIMIN 550 MG TABLET (UD) PO SCH ×2 (10:01→21:27)
[2021-01-21] MEDS: ASCORBIC ACID 250 MG TABLET (FP) PO SCH (10:01)
[2021-01-21] MEDS: NICOTINE 7 MG/24 HOURS TOPICAL PATCH TD SCH (10:02)
[2021-01-21] MEDS ORDERED: PT OWN MED DRAWER 7, Y5N ONE ×2 (10:11→21:26)
[2021-01-21 10:17] LABS: EPI CELLS 2 /uL (0-25.1); HYALINE CASTS 1 /uL (0-3.1); URINE APPEARANCE CLEAR; URINE BACTERIA 28 /uL (0-1359); URINE BILIRUBIN 1+ (NEGATIVE); URINE COLOR DK YELLOW; URINE GLUCOSE (UA) NEGATIVE (NEGATIVE); URINE KETONE TRACE (NEGATIVE); URINE LEUK ESTERASE NEGATIVE (NEGATIVE); URINE NITRITE NEGATIVE (NEGATIVE); URINE PROTEIN TRACE (NEGATIVE); URINE RBC 351 /uL (0-23.9); URINE WBC 10 /uL (0-25.8)
[2021-01-21] MEDS: THIAMINE HCL 100 MG TABLET (FP) PO SCH (21:26)
[2021-01-21] MEDS: SUVOREXANT 10 MG TABLET PO PRN (21:27)
[2021-01-21] MEDS: hydrOXYzine PAMOATE 25 MG CAPSULE (FP) PO PRN (21:28)
[2021-01-22 06:10] LABS: SARS-CoV-2 NAA Not Detected (Not Detected)
[2021-01-22] MEDS: LACTULOSE 20 GM/30 ML UDC (FOR ORAL USE ONLY) PO SCH ×2 (09:44→21:28)
[2021-01-22] MEDS: PANTOPRAZOLE 40 MG TABLET PO SCH (09:45)
[2021-01-22] MEDS: NICOTINE 7 MG/24 HOURS TOPICAL PATCH TD SCH (09:45)
[2021-01-22] MEDS: FERROUS SO4 325 MG TABLET (FP) PO SCH (09:45)
[2021-01-22] MEDS: levETIRAcetam 500 MG TABLET (FP) PO SCH ×2 (09:45→21:29)
[2021-01-22] MEDS: ASCORBIC ACID 250 MG TABLET (FP) PO SCH (09:46)
[2021-01-22] MEDS: methylPREDNISolone 4 MG TABLET PO SCH (09:46)
[2021-01-22] MEDS: RIFAXIMIN 550 MG TABLET (UD) PO SCH ×2 (09:46→21:30)
[2021-01-22] MEDS: PRENATAL VITAMINS W/ FOLIC ACID TABLET (FP) PO SCH (09:48)
[2021-01-22] MEDS: TETRAHYDROZOLINE HCL EYE DROPS OU PRN (09:51)
[2021-01-22] MEDS ORDERED: PT OWN MED DRAWER 7, Y5N ONE ×2 (09:58→21:30)
[2021-01-22] MEDS: THIAMINE HCL 100 MG TABLET (FP) PO SCH (21:28)
[2021-01-22] MEDS: SUVOREXANT 10 MG TABLET PO PRN (21:29)
[2021-01-22] MEDS: hydrOXYzine PAMOATE 25 MG CAPSULE (FP) PO PRN (21:29)
[2021-01-23] MEDS: hydrOXYzine PAMOATE 25 MG CAPSULE (FP) PO PRN ×2 (06:34→21:26)
[2021-01-23] MEDS ORDERED: PT OWN MED DRAWER 7, Y5N ONE ×2 (09:18→09:57)
[2021-01-23] MEDS: LACTULOSE 20 GM/30 ML UDC (FOR ORAL USE ONLY) PO SCH ×2 (09:55→21:26)
[2021-01-23] MEDS: FERROUS SO4 325 MG TABLET (FP) PO SCH (09:55)
[2021-01-23] MEDS: levETIRAcetam 500 MG TABLET (FP) PO SCH ×2 (09:55→21:26)
[2021-01-23] MEDS: methylPREDNISolone 4 MG TABLET PO SCH (09:56)
[2021-01-23] MEDS: PANTOPRAZOLE 40 MG TABLET PO SCH (09:57)
[2021-01-23] MEDS: RIFAXIMIN 550 MG TABLET (UD) PO SCH ×2 (09:57→21:25)
[2021-01-23] MEDS: ASCORBIC ACID 250 MG TABLET (FP) PO SCH (09:57)
[2021-01-23] MEDS: PRENATAL VITAMINS W/ FOLIC ACID TABLET (FP) PO SCH (09:57)
[2021-01-23] MEDS: NICOTINE 7 MG/24 HOURS TOPICAL PATCH TD SCH (09:57)
[2021-01-23] MEDS: THIAMINE HCL 100 MG TABLET (FP) PO SCH (21:25)
[2021-01-23] MEDS: SUVOREXANT 10 MG TABLET PO PRN (21:26)
[2021-01-24] MEDS: hydrOXYzine PAMOATE 25 MG CAPSULE (FP) PO PRN ×2 (06:19→21:31)
[2021-01-24] MEDS ORDERED: PT OWN MED DRAWER 7, Y5N ONE (08:47)
[2021-01-24] MEDS: methylPREDNISolone 4 MG TABLET PO SCH (09:52)
[2021-01-24] MEDS: levETIRAcetam 500 MG TABLET (FP) PO SCH ×2 (09:52→21:28)
[2021-01-24] MEDS: FERROUS SO4 325 MG TABLET (FP) PO SCH (09:52)
[2021-01-24] MEDS: PANTOPRAZOLE 40 MG TABLET PO SCH (09:54)
[2021-01-24] MEDS: PRENATAL VITAMINS W/ FOLIC ACID TABLET (FP) PO SCH (09:54)
[2021-01-24] MEDS: ASCORBIC ACID 250 MG TABLET (FP) PO SCH (09:54)
[2021-01-24] MEDS: NICOTINE 7 MG/24 HOURS TOPICAL PATCH TD SCH (09:54)
[2021-01-24] MEDS: RIFAXIMIN 550 MG TABLET (UD) PO SCH ×2 (09:55→21:28)
[2021-01-24] MEDS: LACTULOSE 20 GM/30 ML UDC (FOR ORAL USE ONLY) PO SCH ×2 (09:55→21:27)
[2021-01-24] MEDS: THIAMINE HCL 100 MG TABLET (FP) PO SCH (21:27)
[2021-01-24] MEDS: SUVOREXANT 10 MG TABLET PO PRN (21:29)
[2021-01-25] MEDS: PANTOPRAZOLE 40 MG TABLET PO SCH (09:58)
[2021-01-25] MEDS: FERROUS SO4 325 MG TABLET (FP) PO SCH (09:58)
[2021-01-25] MEDS: LACTULOSE 20 GM/30 ML UDC (FOR ORAL USE ONLY) PO SCH ×2 (09:58→21:19)
[2021-01-25] MEDS: RIFAXIMIN 550 MG TABLET (UD) PO SCH ×2 (09:59→21:19)
[2021-01-25] MEDS: levETIRAcetam 500 MG TABLET (FP) PO SCH ×2 (09:59→21:19)
[2021-01-25] MEDS: ASCORBIC ACID 250 MG TABLET (FP) PO SCH (09:59)
[2021-01-25] MEDS: PRENATAL VITAMINS W/ FOLIC ACID TABLET (FP) PO SCH (09:59)
[2021-01-25] MEDS: methylPREDNISolone 4 MG TABLET PO SCH (10:00)
[2021-01-25] MEDS: NICOTINE 7 MG/24 HOURS TOPICAL PATCH TD SCH (10:00)
[2021-01-25] MEDS: TETRAHYDROZOLINE HCL EYE DROPS OU PRN (10:05)
[2021-01-25] MEDS ORDERED: PT OWN MED DRAWER 7, Y5N ONE ×2 (10:47→21:19)
[2021-01-25] MEDS: hydrOXYzine PAMOATE 25 MG CAPSULE (FP) PO PRN (21:19)
[2021-01-25] MEDS: THIAMINE HCL 100 MG TABLET (FP) PO SCH (21:19)
[2021-01-25] MEDS: SUVOREXANT 10 MG TABLET PO PRN (21:21)
[2021-01-26] MEDS ORDERED: PT OWN MED DRAWER 7, Y5N ONE ×3 (09:12→10:11)
[2021-01-26] MEDS: FERROUS SO4 325 MG TABLET (FP) PO SCH (09:59)
[2021-01-26] MEDS: LACTULOSE 20 GM/30 ML UDC (FOR ORAL USE ONLY) PO SCH ×2 (09:59→21:56)
[2021-01-26] MEDS: levETIRAcetam 500 MG TABLET (FP) PO SCH ×2 (10:00→21:56)
[2021-01-26] MEDS: methylPREDNISolone 4 MG TABLET PO SCH (10:01)
[2021-01-26] MEDS: RIFAXIMIN 550 MG TABLET (UD) PO SCH ×2 (10:02→21:57)
[2021-01-26] MEDS: NICOTINE 7 MG/24 HOURS TOPICAL PATCH TD SCH (10:02)
[2021-01-26] MEDS: PANTOPRAZOLE 40 MG TABLET PO SCH (10:02)
[2021-01-26] MEDS: PRENATAL VITAMINS W/ FOLIC ACID TABLET (FP) PO SCH (10:02)
[2021-01-26] MEDS: ASCORBIC ACID 250 MG TABLET (FP) PO SCH (10:02)
[2021-01-26 10:06] LABS: HEMATOCRIT 31.6 % (35.4-49); HEMOGLOBIN 10.5 GM/dL (11.7-16.9); MCH 35.3 pg (25.7-33.7); MCHC 33.1 g/dl (32.0-35.9); MEAN CELL VOLUME 106.6 fl (80-96); MEAN PLT VOLUME 9.8 fl (7.5-11.1); PLATELET COUNT 109 K/MM3 (134-434); RBC 2.97 M/mm3 (4.00-5.60); RDW 17.6 % (11.9-15.9); WHITE BLOOD COUNT 14.5 K/mm3 (4.0-10.0)
[2021-01-26] MEDS: THIAMINE HCL 100 MG TABLET (FP) PO SCH (21:56)
[2021-01-26] MEDS: SUVOREXANT 10 MG TABLET PO PRN (22:01)
[2021-01-26] MEDS: hydrOXYzine PAMOATE 25 MG CAPSULE (FP) PO PRN (22:03)
[2021-01-27] MEDS ORDERED: PT OWN MED DRAWER 7, Y5N ONE ×3 (09:10→19:42)
[2021-01-27] MEDS: LACTULOSE 20 GM/30 ML UDC (FOR ORAL USE ONLY) PO SCH ×2 (10:48→21:29)
[2021-01-27] MEDS: FERROUS SO4 325 MG TABLET (FP) PO SCH (10:49)
[2021-01-27] MEDS: levETIRAcetam 500 MG TABLET (FP) PO SCH ×2 (10:49→21:30)
[2021-01-27] MEDS: methylPREDNISolone 4 MG TABLET PO SCH (10:50)
[2021-01-27] MEDS: PANTOPRAZOLE 40 MG TABLET PO SCH (10:51)
[2021-01-27] MEDS: NICOTINE 7 MG/24 HOURS TOPICAL PATCH TD SCH (10:51)
[2021-01-27] MEDS: PRENATAL VITAMINS W/ FOLIC ACID TABLET (FP) PO SCH (10:51)
[2021-01-27] MEDS: ASCORBIC ACID 250 MG TABLET (FP) PO SCH (10:52)
[2021-01-27] MEDS: RIFAXIMIN 550 MG TABLET (UD) PO SCH ×2 (10:52→21:29)
[2021-01-27 15:09] LABS: EPI CELLS 10 /uL (0-25.1); HYALINE CASTS 6 /uL (0-3.1); URINE APPEARANCE TURBID; URINE BILIRUBIN 2+ (NEGATIVE); URINE COLOR DK YELLOW; URINE GLUCOSE (UA) NEGATIVE (NEGATIVE); URINE KETONE TRACE (NEGATIVE); URINE LEUK ESTERASE TRACE (NEGATIVE); URINE NITRITE POSITIVE (NEGATIVE); URINE PROTEIN 2+ (NEGATIVE); URINE WBC 15 /uL (0-25.8)
[2021-01-27] MEDS ORDERED: FUROSEMIDE 40 MG TABLET (FP) PO ONE (15:58)
[2021-01-27 16:21] LABS: URINE BACTERIA 14.3 /uL (0-1359); URINE RBC 130.2 /uL (0-23.9)
[2021-01-27 16:22] LABS: URINE CRYSTALS 15-20 /hpf
[2021-01-27] MEDS: SUVOREXANT 10 MG TABLET PO PRN (21:29)
[2021-01-27] MEDS: THIAMINE HCL 100 MG TABLET (FP) PO SCH (21:29)
[2021-01-27] MEDS: hydrOXYzine PAMOATE 25 MG CAPSULE (FP) PO PRN (21:30)
[2021-01-28] MEDS: PRENATAL VITAMINS W/ FOLIC ACID TABLET (FP) PO SCH (10:08)
[2021-01-28] MEDS: LACTULOSE 20 GM/30 ML UDC (FOR ORAL USE ONLY) PO SCH ×2 (10:08→21:52)
[2021-01-28] MEDS: methylPREDNISolone 4 MG TABLET PO SCH (10:08)
[2021-01-28] MEDS: RIFAXIMIN 550 MG TABLET (UD) PO SCH ×2 (10:08→21:55)
[2021-01-28] MEDS: levETIRAcetam 500 MG TABLET (FP) PO SCH ×2 (10:08→21:53)
[2021-01-28] MEDS: FUROSEMIDE 40 MG TABLET (FP) PO SCH (10:08)
[2021-01-28] MEDS: PANTOPRAZOLE 40 MG TABLET PO SCH (10:08)
[2021-01-28] MEDS: FERROUS SO4 325 MG TABLET (FP) PO SCH (10:08)
[2021-01-28] MEDS: NICOTINE 7 MG/24 HOURS TOPICAL PATCH TD SCH (10:09)
[2021-01-28] MEDS ORDERED: PT OWN MED DRAWER 7, Y5N ONE ×2 (19:05→21:55)
[2021-01-28] MEDS: THIAMINE HCL 100 MG TABLET (FP) PO SCH (21:52)
[2021-01-28] MEDS: hydrOXYzine PAMOATE 25 MG CAPSULE (FP) PO PRN (21:53)
[2021-01-28] MEDS: SULFAMETHOXAZOLE/TRIMETHOPRIM 800MG/160MG D.S. TABLET PO SCH (21:54)
[2021-01-29] MEDS: SUVOREXANT 10 MG TABLET PO PRN ×2 (00:43→21:47)
[2021-01-29] MEDS ORDERED: PT OWN MED DRAWER 7, Y5N ONE ×2 (09:02→20:38)
[2021-01-29] MEDS: SULFAMETHOXAZOLE/TRIMETHOPRIM 800MG/160MG D.S. TABLET PO SCH ×2 (09:55→21:42)
[2021-01-29] MEDS: PANTOPRAZOLE 40 MG TABLET PO SCH (09:55)
[2021-01-29] MEDS: levETIRAcetam 500 MG TABLET (FP) PO SCH ×2 (09:55→21:42)
[2021-01-29] MEDS: FUROSEMIDE 40 MG TABLET (FP) PO SCH (09:55)
[2021-01-29] MEDS: PRENATAL VITAMINS W/ FOLIC ACID TABLET (FP) PO SCH (09:56)
[2021-01-29] MEDS: LACTULOSE 20 GM/30 ML UDC (FOR ORAL USE ONLY) PO SCH ×2 (09:56→21:42)
[2021-01-29] MEDS: methylPREDNISolone 4 MG TABLET PO SCH (09:58)
[2021-01-29] MEDS: RIFAXIMIN 550 MG TABLET (UD) PO SCH ×2 (09:58→21:42)
[2021-01-29] MEDS: NICOTINE 7 MG/24 HOURS TOPICAL PATCH TD SCH (10:01)
[2021-01-29 10:08] LABS: ALBUMIN 2.2 g/dl (3.4-5.0); BLOOD UREA NITROGEN 12.6 mg/dL (7-18); CALCIUM 8.4 mg/dL (8.5-10.1)
[2021-01-29 10:11] LABS: CREATININE 0.8 mg/dL (0.55-1.3)
[2021-01-29 10:13] LABS: BILIRUBIN,TOTAL 4.1 mg/dL (0.2-1); TOT PROT 5.6 g/dl (6.4-8.2)
[2021-01-29] MEDS: THIAMINE HCL 100 MG TABLET (FP) PO SCH (21:42)
[2021-01-30] MEDS ORDERED: PT OWN MED DRAWER 7, Y5N ONE ×2 (08:26→19:34)
[2021-01-30] MEDS: PANTOPRAZOLE 40 MG TABLET PO SCH (09:48)
[2021-01-30] MEDS: levETIRAcetam 500 MG TABLET (FP) PO SCH ×2 (09:48→22:14)
[2021-01-30] MEDS: FUROSEMIDE 40 MG TABLET (FP) PO SCH (09:48)
[2021-01-30] MEDS: PRENATAL VITAMINS W/ FOLIC ACID TABLET (FP) PO SCH (09:48)
[2021-01-30] MEDS: NICOTINE 7 MG/24 HOURS TOPICAL PATCH TD SCH (09:48)
[2021-01-30] MEDS: SULFAMETHOXAZOLE/TRIMETHOPRIM 800MG/160MG D.S. TABLET PO SCH ×2 (09:48→22:14)
[2021-01-30] MEDS: LACTULOSE 20 GM/30 ML UDC (FOR ORAL USE ONLY) PO SCH ×2 (09:48→22:13)
[2021-01-30] MEDS: methylPREDNISolone 4 MG TABLET PO SCH (09:49)
[2021-01-30] MEDS: RIFAXIMIN 550 MG TABLET (UD) PO SCH ×2 (09:49→22:14)
[2021-01-30] MEDS: SUVOREXANT 10 MG TABLET PO PRN (22:14)
[2021-01-30] MEDS: THIAMINE HCL 100 MG TABLET (FP) PO SCH (22:15)
[2021-01-31] MEDS ORDERED: PT OWN MED DRAWER 7, Y5N ONE (08:43)
[2021-01-31] MEDS: levETIRAcetam 500 MG TABLET (FP) PO SCH ×2 (09:44→21:27)
[2021-01-31] MEDS: LACTULOSE 20 GM/30 ML UDC (FOR ORAL USE ONLY) PO SCH ×2 (09:44→21:28)
[2021-01-31] MEDS: SULFAMETHOXAZOLE/TRIMETHOPRIM 800MG/160MG D.S. TABLET PO SCH (09:44)
[2021-01-31] MEDS: PRENATAL VITAMINS W/ FOLIC ACID TABLET (FP) PO SCH (09:45)
[2021-01-31] MEDS: RIFAXIMIN 550 MG TABLET (UD) PO SCH ×2 (09:45→21:27)
[2021-01-31] MEDS: PANTOPRAZOLE 40 MG TABLET PO SCH (09:45)
[2021-01-31] MEDS: methylPREDNISolone 4 MG TABLET PO SCH (09:46)
[2021-01-31] MEDS: NICOTINE 7 MG/24 HOURS TOPICAL PATCH TD SCH (09:48)
[2021-01-31] MEDS: FUROSEMIDE 40 MG TABLET (FP) PO SCH (09:49)
[2021-01-31] MEDS: THIAMINE HCL 100 MG TABLET (FP) PO SCH (21:27)
[2021-01-31] MEDS: SUVOREXANT 10 MG TABLET PO PRN (21:29)
[2021-01-31] MEDS: METHOCARBAMOL 500 MG TABLET PO SCH (22:29)
[2021-02-01] MEDS: PRENATAL VITAMINS W/ FOLIC ACID TABLET (FP) PO SCH (09:50)
[2021-02-01] MEDS: FUROSEMIDE 40 MG TABLET (FP) PO SCH (09:51)
[2021-02-01] MEDS: methylPREDNISolone 4 MG TABLET PO SCH (09:51)
[2021-02-01] MEDS: PANTOPRAZOLE 40 MG TABLET PO SCH (09:51)
[2021-02-01] MEDS: levETIRAcetam 500 MG TABLET (FP) PO SCH ×2 (09:51→21:10)
[2021-02-01] MEDS: NICOTINE 7 MG/24 HOURS TOPICAL PATCH TD SCH (09:52)
[2021-02-01] MEDS: METHOCARBAMOL 500 MG TABLET PO SCH ×2 (09:52→21:10)
[2021-02-01] MEDS: LACTULOSE 20 GM/30 ML UDC (FOR ORAL USE ONLY) PO SCH ×2 (09:53→21:11)
[2021-02-01] MEDS: RIFAXIMIN 550 MG TABLET (UD) PO SCH ×2 (10:40→21:10)
[2021-02-01] MEDS: THIAMINE HCL 100 MG TABLET (FP) PO SCH (21:08)
[2021-02-01] MEDS: SUVOREXANT 10 MG TABLET PO PRN (21:10)
[2021-02-02] MEDS: NICOTINE 7 MG/24 HOURS TOPICAL PATCH TD SCH (09:48)
[2021-02-02] MEDS: METHOCARBAMOL 500 MG TABLET PO SCH ×2 (09:49→21:25)
[2021-02-02] MEDS: LACTULOSE 20 GM/30 ML UDC (FOR ORAL USE ONLY) PO SCH ×2 (09:49→21:24)
[2021-02-02] MEDS: FUROSEMIDE 40 MG TABLET (FP) PO SCH (09:49)
[2021-02-02] MEDS: PANTOPRAZOLE 40 MG TABLET PO SCH (09:49)
[2021-02-02] MEDS: RIFAXIMIN 550 MG TABLET (UD) PO SCH ×2 (09:49→21:25)
[2021-02-02] MEDS: levETIRAcetam 500 MG TABLET (FP) PO SCH ×2 (09:49→21:25)
[2021-02-02] MEDS: PRENATAL VITAMINS W/ FOLIC ACID TABLET (FP) PO SCH (09:49)
[2021-02-02] MEDS: methylPREDNISolone 4 MG TABLET PO SCH (09:49)
[2021-02-02] MEDS: SUVOREXANT 10 MG TABLET PO PRN (21:25)
[2021-02-02] MEDS: THIAMINE HCL 100 MG TABLET (FP) PO SCH (21:25)
[2021-02-03] MEDS: PANTOPRAZOLE 40 MG TABLET PO SCH (09:57)
[2021-02-03] MEDS: methylPREDNISolone 4 MG TABLET PO SCH (09:57)
[2021-02-03] MEDS: LACTULOSE 20 GM/30 ML UDC (FOR ORAL USE ONLY) PO SCH ×2 (09:57→21:31)
[2021-02-03] MEDS: PRENATAL VITAMINS W/ FOLIC ACID TABLET (FP) PO SCH (09:57)
[2021-02-03] MEDS: RIFAXIMIN 550 MG TABLET (UD) PO SCH ×2 (09:58→21:31)
[2021-02-03] MEDS: METHOCARBAMOL 500 MG TABLET PO SCH ×2 (09:58→21:31)
[2021-02-03] MEDS: FUROSEMIDE 40 MG TABLET (FP) PO SCH (09:58)
[2021-02-03] MEDS: levETIRAcetam 500 MG TABLET (FP) PO SCH ×2 (09:58→21:31)
[2021-02-03] MEDS: NICOTINE 7 MG/24 HOURS TOPICAL PATCH TD SCH (09:58)
[2021-02-03] MEDS: THIAMINE HCL 100 MG TABLET (FP) PO SCH (21:31)
[2021-02-03] MEDS: SUVOREXANT 10 MG TABLET PO PRN (21:32)
[2021-02-04] MEDS: LACTULOSE 20 GM/30 ML UDC (FOR ORAL USE ONLY) PO SCH ×3 (10:08→21:34)
[2021-02-04] MEDS: NICOTINE 7 MG/24 HOURS TOPICAL PATCH TD SCH (10:08)
[2021-02-04] MEDS: levETIRAcetam 500 MG TABLET (FP) PO SCH ×2 (10:09→21:34)
[2021-02-04] MEDS: methylPREDNISolone 4 MG TABLET PO SCH (10:09)
[2021-02-04] MEDS: RIFAXIMIN 550 MG TABLET (UD) PO SCH ×2 (10:09→21:34)
[2021-02-04] MEDS: PRENATAL VITAMINS W/ FOLIC ACID TABLET (FP) PO SCH (10:10)
[2021-02-04] MEDS: FUROSEMIDE 40 MG TABLET (FP) PO SCH (10:10)
[2021-02-04] MEDS: METHOCARBAMOL 500 MG TABLET PO SCH ×2 (10:10→21:34)
[2021-02-04] MEDS: PANTOPRAZOLE 40 MG TABLET PO SCH (10:10)
[2021-02-04 10:19] LABS: EOS % 1.5 % (0-4.5); HEMATOCRIT 32.7 % (35.4-49); HEMOGLOBIN 11.1 GM/dL (11.7-16.9); LYMPH % 13.5 % (8-40); MCH 35.5 pg (25.7-33.7); MCHC 33.9 g/dl (32.0-35.9); MEAN CELL VOLUME 104.9 fl (80-96); MEAN PLT VOLUME 10.3 fl (7.5-11.1); MONO % 9.2 % (3.8-10.2); NEUT % 75.8 % (42.8-82.8); PLATELET COUNT 71 K/MM3 (134-434); RBC 3.11 M/mm3 (4.00-5.60); RDW 18.2 % (11.9-15.9); WHITE BLOOD COUNT 11.3 K/mm3 (4.0-10.0)
[2021-02-04] MEDS: BACITRACIN 0.9 GM PACKET TP SCH (13:07)
[2021-02-04] MEDS: THIAMINE HCL 100 MG TABLET (FP) PO SCH (21:34)
[2021-02-04] MEDS: SUVOREXANT 10 MG TABLET PO PRN (21:35)
[2021-02-05] MEDS: LACTULOSE 20 GM/30 ML UDC (FOR ORAL USE ONLY) PO SCH ×3 (06:32→22:10)
[2021-02-05 07:42] VITALS: TEMP 97.9
[2021-02-05] MEDS: BACITRACIN 0.9 GM PACKET TP SCH (10:02)
[2021-02-05] MEDS: levETIRAcetam 500 MG TABLET (FP) PO SCH ×2 (10:02→22:10)
[2021-02-05] MEDS: methylPREDNISolone 4 MG TABLET PO SCH (10:02)
[2021-02-05] MEDS: PRENATAL VITAMINS W/ FOLIC ACID TABLET (FP) PO SCH (10:02)
[2021-02-05] MEDS: PANTOPRAZOLE 40 MG TABLET PO SCH (10:02)
[2021-02-05] MEDS: FUROSEMIDE 40 MG TABLET (FP) PO SCH (10:02)
[2021-02-05] MEDS: RIFAXIMIN 550 MG TABLET (UD) PO SCH ×2 (10:02→22:09)
[2021-02-05] MEDS: METHOCARBAMOL 500 MG TABLET PO SCH ×2 (10:02→22:09)
[2021-02-05] MEDS: NICOTINE 7 MG/24 HOURS TOPICAL PATCH TD SCH (10:03)
[2021-02-05] MEDS: hydrOXYzine PAMOATE 25 MG CAPSULE (FP) PO PRN (14:58)
[2021-02-05] MEDS: THIAMINE HCL 100 MG TABLET (FP) PO SCH (22:10)
[2021-02-05] MEDS: SUVOREXANT 10 MG TABLET PO PRN (22:11)
[2021-02-06] MEDS: LACTULOSE 20 GM/30 ML UDC (FOR ORAL USE ONLY) PO SCH ×3 (05:52→21:54)
[2021-02-06] MEDS: BACITRACIN 0.9 GM PACKET TP SCH (10:04)
[2021-02-06] MEDS: PRENATAL VITAMINS W/ FOLIC ACID TABLET (FP) PO SCH (10:04)
[2021-02-06] MEDS: levETIRAcetam 500 MG TABLET (FP) PO SCH ×2 (10:05→21:54)
[2021-02-06] MEDS: RIFAXIMIN 550 MG TABLET (UD) PO SCH ×2 (10:05→21:54)
[2021-02-06] MEDS: NICOTINE 7 MG/24 HOURS TOPICAL PATCH TD SCH (10:05)
[2021-02-06] MEDS: FUROSEMIDE 40 MG TABLET (FP) PO SCH (10:05)
[2021-02-06] MEDS: PANTOPRAZOLE 40 MG TABLET PO SCH (10:05)
[2021-02-06] MEDS: METHOCARBAMOL 500 MG TABLET PO SCH ×2 (10:05→21:54)
[2021-02-06] MEDS: methylPREDNISolone 4 MG TABLET PO SCH (10:08)
[2021-02-06] MEDS: hydrOXYzine PAMOATE 25 MG CAPSULE (FP) PO PRN ×2 (10:08→21:56)
[2021-02-06] MEDS: THIAMINE HCL 100 MG TABLET (FP) PO SCH (21:54)
[2021-02-06] MEDS ORDERED: SUVOREXANT 10 MG TABLET PO PRN (22:00)
[2021-02-07] MEDS: LACTULOSE 20 GM/30 ML UDC (FOR ORAL USE ONLY) PO SCH (06:43)
[2021-02-07 07:04] VITALS: BP 156/84; PULSE 85
[2021-02-07] MEDS: PRENATAL VITAMINS W/ FOLIC ACID TABLET (FP) PO SCH (09:46)
[2021-02-07] MEDS: BACITRACIN 0.9 GM PACKET TP SCH (09:47)
[2021-02-07] MEDS: TETRAHYDROZOLINE HCL EYE DROPS OU PRN (09:47)
[2021-02-07] MEDS: METHOCARBAMOL 500 MG TABLET PO SCH (09:47)
[2021-02-07] MEDS: RIFAXIMIN 550 MG TABLET (UD) PO SCH (09:47)
[2021-02-07] MEDS: levETIRAcetam 500 MG TABLET (FP) PO SCH (09:47)
[2021-02-07] MEDS: FUROSEMIDE 40 MG TABLET (FP) PO SCH (09:47)
[2021-02-07] MEDS: NICOTINE 7 MG/24 HOURS TOPICAL PATCH TD SCH (09:48)
[2021-02-07] MEDS: PANTOPRAZOLE 40 MG TABLET PO SCH (09:48)
[2021-02-07] MEDS: methylPREDNISolone 4 MG TABLET PO SCH (09:48)
[2021-02-09] MEDS ORDERED: methylPREDNISolone 4 MG TABLET PO SCH (10:00)
[2021-02-12] MEDS ORDERED: methylPREDNISolone 4 MG TABLET PO SCH (10:00)
[2021-02-14] MEDS ORDERED: methylPREDNISolone 4 MG TABLET PO SCH (10:00)
[2021-02-16] MEDS ORDERED: methylPREDNISolone 4 MG TABLET PO SCH (10:00)
[2021-02-18] MEDS ORDERED: methylPREDNISolone 4 MG TABLET PO SCH (10:00)
[2021-02-20] MEDS ORDERED: methylPREDNISolone 4 MG TABLET PO SCH (10:00)
== END 2021-02-07 09:53 | disposition home or self-care (01) | DRG 772 ==
LOC: YASAS 17:57 → Y3E 20:24 → Y3W 01-31 14:16
PROVIDERS: ADMIT Allergy & Immunology; ATTEND Allergy & Immunology
PROC: HZ42ZZZ Group Counseling for Substance Abuse Treatment, Cognitive-Behavioral (ICD-10-PCS; principal; 2021-01-18)
DX: F10.20 Alcohol dependence, uncomplicated (principal); F17.210 Nicotine dependence, cigarettes, uncomplicated; F19.282 Other psychoactive substance dependence with psychoactive substance-induced sleep disorder; F19.280 Other psychoactive substance dependence with psychoactive substance-induced anxiety disorder; F19.24 Other psychoactive substance dependence with psychoactive substance-induced mood disorder; F43.22 Adjustment disorder with anxiety; K70.30 Alcoholic cirrhosis of liver without ascites; E72.20 Disorder of urea cycle metabolism, unspecified; D72.829 Elevated white blood cell count, unspecified; G40.909 Epilepsy, unspecified, not intractable, without status epilepticus; R82.90 Unspecified abnormal findings in urine; R73.9 Hyperglycemia, unspecified; R79.89 Other specified abnormal findings of blood chemistry; R60.0 Localized edema; S90.422A Blister (nonthermal), left great toe, initial encounter; S90.421A Blister (nonthermal), right great toe, initial encounter; X58.XXXA Exposure to other specified factors, initial encounter; Y93.9 Activity, unspecified; Y92.9 Unspecified place or not applicable
CPT/HCPCS: 36415; 80053; 80177; 81003; 82140; 82728; 82962; 83540; 83550; 85025; 85027; 86780; 87086; C9803; U0003; U0005